=== PATIENT | male | born 1985 | race Caucasian/White ===

== ENCOUNTER 2016-12-30 14:09 | Emergency (ER) | payer BC ==
[~2016-12-30] VITALS: Ht 188 cm; Wt 95.3 kg
[2016-12-30] MEDS ORDERED: FLUORESCEIN SODIUM 1 MG STRIP OP ONE (14:30)
[2016-12-30] MEDS ORDERED: TETRACAINE HCL 0.5% OPHT DROP 2 ML BOTTLE OP ONE (14:30)
[2016-12-30] MEDS ORDERED: FLUORESCEIN SODIUM 1 MG STRIP ONE (14:33)
[2016-12-30] MEDS ORDERED: TETRACAINE HCL 0.5% OPHT DROP 2 ML BOTTLE ONE (14:33)
--- NOTE | 2016-12-30 14:47 | NUR ---
DR MARTINEZ AT THE BEDSIDE FOR EVAL AND EXAM.
--- NOTE | 2016-12-30 15:21 | NUR ---
Patient discharged to home in stable conditon. Written and verbal after care instructions given. Patient verbalizes understanding of instructions. PT LEFT ER W/ STEADY GAIT.
[2016-12-30 15:22] VITALS: BP 123/70; PULSE 6; RESP 15; O2SAT 99
== END 2016-12-30 15:23 | disposition home or self-care (01) ==
LOC: ER 14:11
DX: H20.9 Unspecified iridocyclitis (principal); J45.909 Unspecified asthma, uncomplicated
CPT/HCPCS: 99283; A4663